=== PATIENT | female | born 1975 | race Caucasian/White ===

== ENCOUNTER 2018-10-08 19:02 | Observation (INO) | payer BC ==
[2018-10-08] VITALS (7 sets, daily range): BP systolic 119–136; BP diastolic 66–77; PULSE 86–93; TEMP 99.3–99.6
[~2018-10-08] VITALS: Ht 165.1 cm; Wt 97.6 kg
--- NOTE | 2018-10-08 19:10 | NUR ---
Patient arrives per ambulatory status. Is alert and oriented x4. Reports pain to left flank starting 2 days ago, yesterday was significantly worse, with nausea and vomiting. Was seen in the ER in [place], received a CT scan. Reports meds given in doctors office of Rocephin 1gm IM, Toradol 60mg IM and Phenergan 50mg IM. VS 99.6-93-20 SaO2 96% on room air. BP 136/71.
[2018-10-08] MEDS ORDERED: PAXIL 30MG30 MG PO (19:19)
--- NOTE | 2018-10-08 19:28 | NUR ---
Dr Kang notified of patients arrival.
[2018-10-08] MEDS ORDERED: TYLENOL PM EXTR1 TA1 PO (19:55)
--- NOTE | 2018-10-08 20:25 | NUR ---
TO OR PER BED.
--- NOTE | 2018-10-08 21:25 | NUR ---
RETURNS FROM OR PER BED.
--- NOTE | 2018-10-08 22:30 | NUR ---
ABLE TO EAT ALL OF TURKEY SANDWICH/CHIPS AND WATER WITHOUT N/V. HAS VOIDED TWICE WITH SECOND URINE YELLOW AND CLEAR. REPORTS NO PAIN AT THIS TIME. IVF INFUSING TO LEFT HAND WITHOUT REDNESS OR SWELLING. PATIENT REPORTS FEELING MUCH BETTER.
[2018-10-09 00:10] VITALS: BP 131/75; PULSE 83
[2018-10-09 01:10] VITALS: BP 130/70; PULSE 83
--- NOTE | 2018-10-09 04:00 | NUR ---
Patient resting comfortably. Has been up to bathroom, strained for no stone. Denies pain at this time. IVF infusing without redness or swelling.
[2018-10-09 04:34] VITALS: BP 139/77; PULSE 78; TEMP 98.5
[2018-10-09 08:26] VITALS: BP 150/79; PULSE 66; TEMP 98
--- NOTE | 2018-10-09 08:38 | NUR ---
Patient resting in bed. Going to order breakfast, denies nausea. She does report pain to her L.side, tordol as scheduled given. Patient voiding without difficulty. Alfredo pierce.
--- NOTE | 2018-10-09 11:37 | NUR ---
Initial visit attempt; Patient out, thanked Construction Technician for looking in on Julisa and offering God's blessings.
--- NOTE | 2018-10-09 12:41 | NUR ---
Patient for discharge. Patient got her norco & levaquin script filled. Int dc. We rviewed all discharge instructions including medication safety. Patient had tab of norco prior to discharge & pain much better managed. Patient verbalized understanding of making a follow up urology appt with in one week at [facility], list of doctors provided. We dicussed her stent & signs & symptoms to watch for & seek medical attention if needed. Patient ambulatd out with all belongings, he taking her home
== END 2018-10-09 12:46 | disposition home or self-care (01) ==
LOC: SDCO 19:02 → SURG 19:03 → SDCO 20:07 → SURG 20:08 → SDCO 10-09 12:46
PROVIDERS: ADMIT Urology
DX: N20.1 Calculus of ureter (principal); N39.0 Urinary tract infection, site not specified; Z84.1 Family history of disorders of kidney and ureter; Z79.899 Other long term (current) drug therapy; E66.9 Obesity, unspecified; Z68.35 Body mass index [BMI] 35.0-35.9, adult; F32.9 Major depressive disorder, single episode, unspecified; F41.9 Anxiety disorder, unspecified
CPT/HCPCS: OP; C1769; C2617; J0690; J1100; J1885; J1956; J2405; J2704; J3010; J7030; Q9967

== ENCOUNTER 2018-10-16 11:58 | Day surgery (SDC) | payer BC ==
[~2018-10-16] VITALS: Ht 165.1 cm; Wt 96.2 kg
[~2018-10-16 11:58] MED LIST: PAXIL 30MG30 MG PO; TYLENOL PM EXTR1 TA1 PO
[2018-10-16 12:57] VITALS: BP 181/93; PULSE 71; TEMP 98
[2018-10-16] MEDS ORDERED: NORCO 325 MG-51 TAB PO (13:04)
[2018-10-16] MEDS ORDERED: MOTRIN 600600 MG/TAB PO (13:05)
[2018-10-16] MEDS ORDERED: LEVAQUIN 5500 MG/TA1 PO (13:05)
--- NOTE | 2018-10-16 13:07 | NUR ---
TO RM 2 AT 1218- CALL LIGHT IN REACH AT BEDSIDE
[2018-10-16 16:10] VITALS: BP 143/83; PULSE 80; TEMP 98
--- NOTE | 2018-10-16 16:10 | NUR ---
Patient arrives back [place] [facility] [place], reports pain 2/10, denies nausea. Bear hugger in place. Patient monitor applied, vitals stable. Spouse brought to bedside. Patient given water, apple sauce and toast.
[2018-10-16 16:18] VITALS: TEMP 97.7
[2018-10-16 16:25] VITALS: BP 155/85; PULSE 86
--- NOTE | 2018-10-16 16:50 | NUR ---
Bear macarenagger discontinued at this time. Patient up to restroom and is able to urinate without any complications or difficulties. Patient reports she is feeling much better, and wants to go home.
[2018-10-16 17:05] VITALS: BP 116/52; PULSE 88
--- NOTE | 2018-10-16 17:15 | NUR ---
Dismissal instructions gone over with patient and patient's spouse. Both verbalize understanding and all questions answered.
--- NOTE | 2018-10-16 17:20 | NUR ---
Patient discharged to home thanking staff for services.
== END 2018-10-16 17:20 | disposition home or self-care (01) ==
LOC: SDCO 11:58
DX: N20.1 Calculus of ureter (principal); Z87.440 Personal history of urinary (tract) infections; F32.9 Major depressive disorder, single episode, unspecified; F41.9 Anxiety disorder, unspecified
CPT/HCPCS: C1769; J0360; J0690; J2704; J3010; J7120; Q9967